=== PATIENT | female | born 1935 | race Caucasian/White ===

== ENCOUNTER 2017-02-12 14:05 | Emergency (ER) | payer MEDICARE ==
[2017-02-12 14:05] VITALS: BP 110/60
[2017-02-12 15:36] LABS: CLARITY,URINE HAZY; COLOR,URINE YELLOW
[2017-02-12 15:37] LABS: BILIRUBIN,URINE NEG (NEG); GLUCOSE,URINE NEG (NEG); NITRITE,URINE NEG (NEG); UROBILINOGEN,URINE 1 mg/dL (0.2 mg/dL)
[2017-02-12 15:38] LABS: BACTERIA,URINE 0 /HPF (0-FEW); RBC,URINE RARE /HPF (0-2); SQUAMOUS EPITHELIAL CELL,UR MANY /LPF
[2017-02-12] MEDS ORDERED: FAMOTIDINE 20 MG TABLET PO ONE (16:00)
[2017-02-12] MEDS ORDERED: ONDANSETRON ODT 4 MG TAB.RAPDIS PO ONE (16:00)
--- NOTE | 2017-02-12 16:25 | ED.ADGEN ---
Adult General Chief Complaint Chief Complaint Multiple medical complaints HPI HPI Patient is a 81-year-old female who presents with multiple medical complaints with family members. Patient was treated at an outside facility for right humeral fracture 8 days ago. Patient was also recently treated for urinary tract infection possibly one week ago. Since that time, patient has been taking hydrocodone as previous weakness, nausea, reflux and decreased appetite. Patient said she last ate this morning and toast for lunch. She last vomited yesterday. Denies fever, abdominal pain, chest pain, shortness of breath, palpitations, diarrhea. Denies constipation, diarrhea and dysuria. Review of Systems Review of Systems Review symptoms as per history of present illness. All other review symptoms are negative. Current Medications Current Medications Current Medications Medications (Trade) Dose Ordered Sig/Carmen Start Time Stop Time Status Last Admin Dose Admin Famotidine (Pepcid) 20 mg 1X ONCE 02/12/17 16:00 02/12/17 16:02 DC 02/12/17 15:54 20 MG Ondansetron HCl (Zofran Odt) 4 mg 1X ONCE 02/12/17 16:00 02/12/17 16:02 DC 02/12/17 15:54 4 MG Allergies Allergies Allergies Coded Allergies Type Severity Reaction Last Updated Verified No Known Drug Allergies 02/12/17 No Physical Exam Physical Exam Constitutional: Well developed, well nourished, no acute distress, non-toxic appearance. HENT: Normocephalic, atraumatic, bilateral external ears normal, oropharynx moist, no oral exudates, nose normal. Eyes: PERRL. Neck: Normal range of motion. Cardiovascular:Heart rate regular rhythm, no murmur. Lungs & Thorax: Bilateral breath sounds clear to auscultation. Abdomen: Bowel sounds normal, soft, no numbness. Skin: Warm, dry. Back: No tenderness. Extremities: Right upper extremity in sling. Neurologic: Alert and oriented X 3, normal motor function, normal sensory function, no focal deficits noted. Psychologic: Affect normal, judgement normal, mood normal. Current Patient Data Lab Results Laboratory Tests Test 02/12/17 14:45 Urine Collection Type Void Urine Color Yellow Urine Clarity Hazy Urine pH 6.0 Urine Specific Council 1.020 Urine Protein Trace (NEG-TRACE) Urine Glucose (UA) Negmg/dL (NEG) Urine Ketones (Stick) 15mg/dL (NEG) Urine Blood Neg (NEG) Urine Nitrite Neg (NEG) Urine Bilirubin Neg (NEG) Urine Urobilinogen Dipstick 1mg/dL (0.2 mg/dL) Urine Leukocyte Esterase Neg (NEG) Urine RBC Rare/HPF (0-2) Urine WBC 5-10/HPF (0-4) Urine Squamous Epithelial Cells Many/LPF Urine Bacteria 0/HPF (0-FEW) EKG EKG [] Radiology/Procedures Radiology/Procedures [] Impressions: Multiple medical complaints Course & Med Decision Making Course & Med Decision Making Pertinent Labs and Imaging studies reviewed. (See chart for details) [Nausea and reflux likely related to medication and taking pain meds on empty stomach. Symptoms are after eating. No chest pain or cardiac equivalent. Pepcid and Zofran given. Will encourage fluids, increase caloric intake and decreasing narcotic pain medication to half dose and taking medication with meals. Patient has PCP follow-up next week. Final Impression Final Impression [#1 nausea #2 GERD] Problems: Dragon Disclaimer Dragon Disclaimer This electronic medical record was generated, in whole or in part, using a voice recognition dictation system. TERESITA STANTON DO Feb 12, 2017 16:25
== END 2017-02-12 16:20 | disposition home or self-care (01) ==
LOC: ER 14:05
DX: K21.9 Gastro-esophageal reflux disease without esophagitis (principal); R11.0 Nausea; Z87.440 Personal history of urinary (tract) infections
CPT/HCPCS: 81001; 87086; 99284; Q0162

== ENCOUNTER → 2019-11-22 | Outpatient (CLI) | payer MEDICAID, MEDICARE ==
[~2019-11-22] MED LIST: AMLO5TAB4 PO; CYCL1DRO EACHEYE; ESZO2TAB21 PO; FLUT16SP21 NS; GABA-586 PO; MIRT30TA PO; PROP20TA PO
[2019-11-22 13:42] VITALS: BP 162/87
== END | disposition home or self-care (01) ==
LOC: SURG 13:13
PROVIDERS: ATTEND Anesthesiology Pain Medicine
DX: M54.16 Radiculopathy, lumbar region (principal); I12.9 Hypertensive chronic kidney disease with stage 1 through stage 4 chronic kidney disease, or unspecified chronic kidney disease; N18.9 Chronic kidney disease, unspecified; Z88.5 Allergy status to narcotic agent; Z88.8 Allergy status to other drugs, medicaments and biological substances; Z98.890 Other specified postprocedural states; Z79.899 Other long term (current) drug therapy
CPT/HCPCS: 99213

== ENCOUNTER → 2019-12-27 | Outpatient (CLI) | payer MEDICARE ==
[~2019-12-27] MED LIST changes: +0.9 % SODIUM CHLORIDE 10 ML VIAL ONE; +HYDR-2155 PO; +IOHEXOL 300 MG/ML 50 ML VIAL. ONE; +LIDOCAINE 1% PF 30 ML VIAL. ONE; +methylPREDNISolone ACETATE 80 MG/ML VIAL. ONE
[2019-12-27 15:10] VITALS: BP 159/70
== END ==
LOC: SURG 14:09
PROVIDERS: ATTEND Anesthesiology Pain Medicine
DX: M54.16 Radiculopathy, lumbar region (principal); I12.9 Hypertensive chronic kidney disease with stage 1 through stage 4 chronic kidney disease, or unspecified chronic kidney disease; N18.9 Chronic kidney disease, unspecified; Z88.5 Allergy status to narcotic agent; Z88.8 Allergy status to other drugs, medicaments and biological substances; Z98.890 Other specified postprocedural states
CPT/HCPCS: 62323; J1040; J2001; Q9967